=== PATIENT | female | born 1990 | race Asian ===

== ENCOUNTER 2021-11-11 22:34 | Emergency (ER) | payer OTHER ==
[~2021-11-11] VITALS: Ht 157.5 cm; Wt 57.6 kg
[2021-11-11 22:44] VITALS: BP_SYST 112
[2021-11-12 01:00] VITALS: BP_SYST 115
--- NOTE | 2021-11-12 02:50 | NUR ---
call pt name in the WR,no response.
--- NOTE | 2021-11-12 02:55 | NUR ---
call pt name in the WR,no response.
--- NOTE | 2021-11-12 03:00 | NUR ---
call pt name in the WR,no response.
== END 2021-11-12 03:10 | disposition left against medical advice (07) ==
LOC: SED 22:34
DX: O20.9 Hemorrhage in early pregnancy, unspecified (principal); Z53.21 Procedure and treatment not carried out due to patient leaving prior to being seen by health care provider
CPT/HCPCS: 76805-TC

== ENCOUNTER 2022-04-25 16:58 | Inpatient (IN) | payer OTHER ==
[~2022-04-25] VITALS: Ht 157.5 cm; Wt 69.4 kg
[2022-04-25] MEDS ORDERED: LR 1,000 ML IV ONE (17:30)
[2022-04-25] MEDS ORDERED: LR 1,000 ML IV SCH (17:30)
[2022-04-25] MEDS ORDERED: OXYTOCIN/0.9 % SODIUM CHLORIDE 1,000 ML IV SCH (17:30)
[2022-04-25] MEDS ORDERED: TERBUTALINE SULFATE 1 MG/ML VIAL SUBCUT ONE (17:30)
[2022-04-25 17:58] LABS: HEMOGLOBIN 12.2 g/dL (12.0-16.0); MEAN CORPUSCULAR HEMOGLOBIN 31 pg (27-31); MEAN CORPUSCULAR VOLUME 88 fL (79.0-98.0); WHITE BLOOD COUNT (AUTO) 8.1 K/uL (4.8-10.8)
[2022-04-25 18:04] LABS: HEMATOCRIT 34.7 % (36-48); MEAN CORPUSCULAR HGB CONC 35 % (32-36); PLATELET COUNT (AUTO) 163 K/uL (130-430); RED BLOOD CELL COUNT(AUTO) 3.93 MIL/uL (4.2-6.2); RED CELL DISTRIBUTION WIDTH 15.2 % (9.0-15.0)
[2022-04-25] MEDS ORDERED: ONDANSETRON HCL 4 MG/2 ML VIAL IVP PRN (18:15)
[2022-04-25] MEDS ORDERED: FENT2mCg/mL-ROPIVA0.2%/NS EPID 200 ML EP SCH (18:15)
[2022-04-25] MEDS ORDERED: ROPIVACAINE HCL/PF 0.2% 200 ML ONE (18:18)
[2022-04-25 18:30] LABS: BAND % (MANUAL) 6 % (0-6); BASOPHILS % (MANUAL) 0 % (0-2); EOSINOPHILS % (MANUAL) 0 % (0-7); LYMPHOCYTES % (MANUAL) 24 % (20-46); MONOCYTES % (MANUAL) 6 % (0-11)
[2022-04-25] MEDS ORDERED: LIDOCAINE PF 1% 30ML(POUR BTL) INJ ONE (19:48)
[2022-04-25] MEDS ORDERED: LIGHT MINERAL OIL 10 ML VIAL MC ONE (19:48)
[2022-04-25] MEDS ORDERED: NALOXONE HCL 0.4 MG/ML AMP (NARCAN) ONE (19:48)
[2022-04-25] MEDS ORDERED: TEMAZEPAM 15 MG CAPSULE PO PRN (21:00)
[2022-04-25] MEDS ORDERED: RHO(D) IMMUNE GLOBULIN/MALTOSE 1500 UNITS/1.3 ML (WINHRO) IM PRN (22:30)
[2022-04-25] MEDS ORDERED: MEASLES,MUMPS&RUBELLA VACC/PF 12500 UNIT/0.5 ML VIAL SUBQ PRN (22:30)
[2022-04-25] MEDS ORDERED: METHYLERGONOVINE MALEATE 0.2 MG TABLET PO PRN (22:30)
[2022-04-25] MEDS ORDERED: HYDROCORTISONE 0.5% CREAM 28.4 GM CREAM.GM. TP PRN (22:30)
[2022-04-25] MEDS ORDERED: LANOLIN 7 GM OINT. TP PRN (22:30)
[2022-04-25] MEDS ORDERED: OXYTOCIN/0.9 % SODIUM CHLORIDE 1,000 ML IV ONE (22:30)
[2022-04-25] MEDS ORDERED: WITCH HAZEL LEAF 1 MED.PAD MED.PAD TP PRN (22:30)
[2022-04-25] MEDS ORDERED: DERMOPLAST SPRAY TP PRN (22:30)
[2022-04-25] MEDS ORDERED: DIPH-TET-PERTUS Vaccine 0.5 ML VIAL (ADACEL) I.M. PRN (22:30)
[2022-04-25] MEDS ORDERED: OXYCODONE/ACETAMINOPHEN 5-325 TABLET PO PRN ×2 (22:30)
[2022-04-25] MEDS ORDERED: DOCUSATE SODIUM 100 MG CAPSULE PO SCH (22:30)
[2022-04-25] MEDS ORDERED: NALOXONE HCL 0.4 MG/ML AMP (NARCAN) IVP PRN (22:30)
[2022-04-25] MEDS ORDERED: ANUSOL 1 EA SUPP.RECT (PREPARATION H) RC PRN (22:30)
[2022-04-25] MEDS ORDERED: HYDROcodone/ACETAMIN 5-325 MG TAB (NORCO/ VICODIN) PO PRN (22:30)
[2022-04-25] MEDS: IBUPROFEN 600 MG TABLET PO SCH (23:47)
[2022-04-26] MEDS: OXYTOCIN/0.9 % SODIUM CHLORIDE 1,000 ML IV SCH ×2 (03:31→11:32)
[2022-04-26 05:02] VITALS: BP_SYST 126
[2022-04-26] MEDS: IBUPROFEN 600 MG TABLET PO SCH ×3 (05:51→17:27)
[2022-04-26 07:57] LABS: BASOPHILS % (AUTO) 0.2 % (0.0-2.0); EOSINOPHILS # (AUTO) 0.1 K/uL (0.0-0.4); EOSINOPHILS % (AUTO) 0.8 % (0.0-4.0); HEMATOCRIT 29.1 % (36-48); HEMOGLOBIN 9.9 g/dL (12.0-16.0); LYMPHOCYTES # (AUTO) 1.8 K/uL (1.0-5.5); LYMPHOCYTES % (AUTO) 14.7 % (20.5-51.5); MEAN CORPUSCULAR HEMOGLOBIN 30 pg (27-31); MEAN CORPUSCULAR HGB CONC 34 % (32-36); MEAN CORPUSCULAR VOLUME 89 fL (79.0-98.0); MONOCYTES # (AUTO) 1.1 K/uL (0.0-1.0); MONOCYTES % (AUTO) 9.1 % (1.7-9.3); NEUTROPHILS # (AUTO) 9.1 K/uL (1.8-7.7); NEUTROPHILS % (AUTO) 75.2 % (40.0-70.0); PLATELET COUNT (AUTO) 126 K/uL (130-430); RED BLOOD CELL COUNT(AUTO) 3.28 MIL/uL (4.2-6.2); RED CELL DISTRIBUTION WIDTH 14.7 % (9.0-15.0); WHITE BLOOD COUNT (AUTO) 12.1 K/uL (4.8-10.8)
[2022-04-26] MEDS ORDERED: SENNOSIDES/DOCUSATE SODIUM 1 TAB TABLET(SENOKOT-S) PO SCH (21:00)
[2022-04-27] MEDS: IBUPROFEN 600 MG TABLET PO SCH ×3 (00:02→12:03)
[2022-04-27] MEDS ORDERED: OXYC-128 PO (19:59)
== END 2022-04-27 14:05 | disposition home or self-care (01) | DRG 768 ==
LOC: SPU 16:58 → OBSVTOIN 16:58
PROVIDERS: ADMIT Specialist; ATTEND Specialist
PROC: 10D07Z6 Extraction of Products of Conception, Vacuum, Via Natural or Artificial Opening (ICD-10-PCS; principal; 2022-04-26)
PROC: 0DQR0ZZ Repair Anal Sphincter, Open Approach (ICD-10-PCS; 2022-04-26)
PROC: 0W8NXZZ Division of Female Perineum, External Approach (ICD-10-PCS; 2022-04-26)
PROC: 10907ZC Drainage of Amniotic Fluid, Therapeutic from Products of Conception, Via Natural or Artificial Opening (ICD-10-PCS; 2022-04-26)
PROC: 3E0R3BZ Introduction of Anesthetic Agent into Spinal Canal, Percutaneous Approach (ICD-10-PCS; 2022-04-26)
PROC: 00HU33Z Insertion of Infusion Device into Spinal Canal, Percutaneous Approach (ICD-10-PCS; 2022-04-26)
DX: O69.81X0 Labor and delivery complicated by cord around neck, without compression, not applicable or unspecified (principal); Z37.0 Single live birth; O70.20 Third degree perineal laceration during delivery, unspecified; Z20.822 Contact with and (suspected) exposure to COVID-19; Z3A.37 37 weeks gestation of pregnancy
CPT/HCPCS: 36415; 85007; 85025; 85027; 86592; 86886; 86900; 86901; J2001; J2310; J2590